=== PATIENT | male | born 1995 | race American Indian/Alaskan Native ===

== ENCOUNTER 2019-04-03 01:25 | Emergency (ER) | payer SELFPAY ==
[2019-04-03] MEDS ORDERED: KETOROLAC 30 MG/1 ML INJ IV ONE (01:48)
[2019-04-03] MEDS ORDERED: LIDOCAINE (1%) 10 MG/1 ML VIAL 20 ML MDV INFILTRATI ONE (01:49)
[2019-04-03] MEDS ORDERED: HYDROmorphone 1 MG/1 ML INJ IV ONE (01:49)
--- NOTE | 2019-04-03 02:02 | XRay Report ---
SINGLE VIEW LEFT SHOULDER INDICATION: left shoulder injury. COMPARISON: No relevant prior imaging study available. FINDINGS: There is anterior dislocation of the humeral head with respect to the glenoid. No fracture is seen. IMPRESSION: 1. Anterior left shoulder dislocation. Signer Name: Estuardo Durbin MD Signed: 04/03/2019 1:58 AM Workstation Name: [id number]
--- NOTE | 2019-04-03 02:45 | Emergency Department Report ---
ED Extremity Problem HPI - General Chief complaint: Shoulder Injury Stated complaint: SHOULDER PAIN Time Seen by Provider: 04/03/19 01:48 Source: EMS Mode of arrival: Stretcher Limitations: No Limitations - History of Present Illness Initial comments: Patient is a 23-year-old F [place] male suffered a fall prior to arrival and injured his left shoulder. Patient states he has intense pain with any movement of the left shoulder. Patient denies hitting his head or loss of consciousness. Patient states the pain is a 10 out of 10 with movement. Severity scale (0 -10): 10 - Related Data Previous Rx's Medication Instructions Recorded Last Taken Type HYDROcodone/APAP 5-325 [[place] 1 each PO Q6HR PRN #14 tablet 04/03/19 Unknown Rx 5/325] Ibuprofen [Motrin 800 MG tab] 800 mg PO Q8HR PRN #10 tablet 04/03/19 Unknown Rx methOCARBAMOL [Robaxin TAB] 500 mg PO Q6H PRN #14 tablet 04/03/19 Unknown Rx Allergies Allergy/AdvReac Type Severity Reaction Status Date / Time No Known Allergies Allergy Unverified 04/03/19 01:34 ED Review of Systems ROS: Stated complaint: SHOULDER PAIN Other details as noted in HPI Comment: All other systems reviewed and negative ED Past Medical Hx - Past Medical History Previous Medical History?: No - Surgical History Past Surgical History?: No - Social History Smoking Status: Never Smoker Substance Use Type: Alcohol, Marijuana - Medications Home Medications: Home Medications Medication Instructions Recorded Confirmed Last Taken Type HYDROcodone/APAP 5-325 [[place] 1 each PO Q6HR PRN #14 tablet 04/03/19 Unknown Rx 5/325] Ibuprofen [Motrin 800 MG tab] 800 mg PO Q8HR PRN #10 tablet 04/03/19 Unknown Rx methOCARBAMOL [Robaxin TAB] 500 mg PO Q6H PRN #14 tablet 04/03/19 Unknown Rx ED Physical Exam - General Limitations: No Limitations General appearance: alert, in no apparent distress - Head Head exam: Present: atraumatic, normocephalic - Eye Eye exam: Present: normal appearance - ENT ENT exam: Present: mucous membranes moist - Neck Neck exam: Present: normal inspection - Respiratory Respiratory exam: Present: normal lung sounds bilaterally. Absent: respiratory distress - Cardiovascular Cardiovascular Exam: Present: regular rate, normal rhythm. Absent: systolic m urmur, diastolic murmur, rubs, gallop - GI/Abdominal GI/Abdominal exam: Present: soft, normal bowel sounds. Absent: distended, tenderness, guarding - Rectal Rectal exam: Present: deferred - Extremities Exam Extremities exam: Present: normal inspection - Expanded Upper Extremity Exam Left Shoulder Exam: Present: tenderness, deformity (deltoid stepoff), dislocation. Absent: normal inspection, full ROM, swelling - Back Exam Back exam: Present: normal inspection - Neurological Exam Neurological exam: Present: alert, oriented X3 - Psychiatric Psychiatric exam: Present: normal affect, normal mood - Skin Skin exam: Present: warm, dry, intact, normal color. Absent: rash ED Course Vital Signs 04/03/19 01:30 Temperature 98.2 F Pulse Rate 779 H Respiratory 18 Rate Blood Pressure 116/70 O2 Sat by Pulse 100 Oximetry - Orthopedic Joint Reduction Joint #1 Consent Obtained: verbal consent Time Out Performed: Yes Side: left Joint Reduction Location: shoulder Local Anesthetic Used: Lidocaine 1% (10cc intraarticular) Shoulder Technique Used (if applicable): [place] Post-Reduction Neuro Exam: intact Post-Reduction Vascular Exam: intact Post Reduction X-Ray Obtained: Yes Post Reduction X-Ray Results: reduced Patient Tolerated Procedure: well ED Medical Decision Making - Radiology Data Radiology results: image reviewed (Patient with a anterior shoulder dislocation. Postreduction films are within normal limits.) Critical care attestation.: If time is entered above; I have spent that time in minutes in the direct care of this critically ill patient, excluding procedure time. ED Disposition Clinical Impression: Anterior shoulder dislocation Qualifiers: Encounter type: initial encounter Laterality: left Qualified Code(s): S43.015A - Anterior dislocation of left humerus, initial encounter Disposition: - TO HOME OR SELFCARE Is pt being admited?: No Does the pt Need Aspirin: No Condition: Stable Instructions: Shoulder Dislocation (ED) Referrals: BRET LIU MD [Staff Physician] - 3-5 Days
--- NOTE | 2019-04-03 02:46 | XRay Report ---
AP LEFT SHOULDER 0224 HOURS INDICATION: post reduction film. COMPARISON: Earlier the same day FINDINGS: Previously seen dislocation has been reduced. No acute fracture is seen. IMPRESSION: 1. Satisfactory postreduction appearance. Signer Name: Estuardo Durbin MD Signed: 04/03/2019 2:42 AM Workstation Name: [id number]
[2019-04-03 02:58] VITALS: BP 120/66
== END 2019-04-03 02:59 | disposition home or self-care (01) ==
LOC: ED 01:25
DX: S43.015A Anterior dislocation of left humerus, initial encounter (principal); F12.10 Cannabis abuse, uncomplicated; X58.XXXA Exposure to other specified factors, initial encounter; Y93.89 Activity, other specified; Y92.89 Other specified places as the place of occurrence of the external cause; Y99.8 Other external cause status
CPT/HCPCS: 23650; 73020; 96374; 96375; 99284; J1170; J1885